=== PATIENT | female | born 1985 | race Asian ===

== ENCOUNTER 2018-10-23 19:47 | Emergency (ER) | payer MEDICAID ==
[~2018-10-23] VITALS: Ht 162.6 cm; Wt 47.2 kg
[2018-10-23 20:04] VITALS: Ht 162.6 cm; Wt 47.2 kg
[2018-10-23 22:54] VITALS: BP 116/70
== END 2018-10-23 22:54 | disposition home or self-care (01) ==
LOC: ED 19:47
DX: J30.9 Allergic rhinitis, unspecified (principal); Z90.49 Acquired absence of other specified parts of digestive tract; Z86.2 Personal history of diseases of the blood and blood-forming organs and certain disorders involving the immune mechanism
CPT/HCPCS: 87804